=== PATIENT | male | born 1965 | race Caucasian/White ===

== ENCOUNTER → 2022-07-01 | Outpatient (CLI) | payer BC ==
[2022-07-01 08:17] LABS: HEMOGLOBIN 13.9 gm/dl (14.0-17.5); RED BLOOD COUNT 4.4 M/UL (4.20-5.50); WHITE BLOOD COUNT 9.8 K/UL (4.5-11.0)
[2022-07-01 08:37] LABS: BUN/CREATININE RATIO 25 (0-10)
[2022-07-02 07:07] LABS: TESTOSTERONE, SERUM 259 ng/dL (264-916); VITAMIN D, 25-HYDROXY 19.6 ng/mL (30.0-100.0)
== END ==
LOC: LAB 07:45
PROVIDERS: Family Medicine
DX: E11.65 Type 2 diabetes mellitus with hyperglycemia (principal); I10 Essential (primary) hypertension; D51.3 Other dietary vitamin B12 deficiency anemia; E55.9 Vitamin D deficiency, unspecified; R53.81 Other malaise; R53.83 Other fatigue
CPT/HCPCS: 80053; 80061; 82607; 82746; 83036; 84403; 84443; 85027